=== PATIENT | female | born 2000 | race Hispanic/Latino ===

== ENCOUNTER 2022-12-16 09:14 | Emergency (ER) | payer SELFPAY ==
[2022-12-16 09:16] VITALS: BP 127/62; PULSE 102; RESP 18; TEMP 36.6; O2SAT 100
--- NOTE | 2022-12-16 09:54 | EX.ED.DYSGE1 ---
HPI History of Present Illness Chief Complaint: Back Detail of Chief Complaint: Back and abdomen pain Informant: patient Narrative Narrative: Patient presents the emergency department with complaint of back pain that radiates to the lower abdomen. Patient does not speak Sammarinese well therefore we used the iPad interpreter for the deaf. Pain has been for 2 days. She did have a fall several days ago where she fell in the home after slipping but fell forward. Patient denies any pain rating down her legs. She denies loss of bowel or bladder function. She denies dysuria. She denies fever. Rates her pain a 10 out of 10. She has no history of kidney stones. Never had pain like this before. Last menstrual period was 1 month ago. Patient does not think she is . Patient is G1, P1 with her last delivery being in [place]. PFSH PFSH Medical History no medical history Home Medications hydrocodone-acetaminophen 5-325mg 5mg-325mg 1 tab PO Q4H PRN PRN Pain 2 days #10 TABLETS 12/16/22 [Rx Last Taken Unknown] Allergy/AdvReac Type Severity Reaction Status Date / Time No Known Allergies Allergy Verified 12/16/22 09:18 Surgical History no surgical history Social History Smoking Status: Unknown if ever smoked ROS ROS ED Review of Systems ROS Unobtainable: other Constitutional Constitutional ED: Reports lethargy; Denies chills, fever(s), sweats or weight loss Eyes Eyes: Denies blurry vision, change in vision or diplopia ENT ENT ED: Denies rhinorrhea or sore throat Cardiovascular Cardiovascular: Denies chest pain, orthopnea or racing heartbeat Respiratory/Chest Respiratory/Chest: Denies cough, dyspnea, dyspnea on exertion, orthopnea or sputum Gastrointestinal Gastrointestinal: Reports abdominal pain; Denies diarrhea, nausea or vomiting Genitourinary Genitourinary ED: Denies dysuria, hematuria or urinary frequency Musculoskeletal Musculoskeletal: Reports back pain; Denies arthralgias, myalgias or neck pain Integumentary Denies abscess, Abrasions or rash Neurologic Neurologic: Denies headache(s) or weakness Psychiatric Psychiatric: Denies anxiety, depression or suicidal thoughts Endocrine Endocrinology: Denies polydipsia, polyphagia or polyuria Hematologic/Lymphatic Hematologic/Lymphatic: Denies easy bleeding, easy bruising or lymphadenopathy Allergic/Immunologic Allergic/Immunologic ED: Denies mouth swelling, tongue swelling or urticaria EXAM Physical Exam Const Vital Signs: 12/16/22 09:16 12/16/22 14:15 12/16/22 15:29 Temperature 97.9 F Temperature Source Temporal Pulse Rate 102 H 62 Respiratory Rate 18 16 12 Blood Pressure 127/62 H 116/75 Blood Pressure Mean 83 88 Pulse Ox 100 99 Oxygen Delivery Method Room Air Positive well nourished and well developed General Appearance ED: well developed and NAD HEENT Reports TM's clear and moist mucous membranes normocephalic and atraumatic; Negative for trauma or tenderness Tympanic Membrane ED: Yes TM's clear Eyes PERRL and EOMs intact bilaterally General Eye ED: Negative for pale conjunctiva or scleral icterus Neck no lymphadenopathy, supple and no JVD General: Negative for tenderness Chest Wall inspection of chest normal and palpation of chest normal Chest: Negative for tenderness Resp normal respiratory effort and clear to auscultation bilaterally Effort and Inspection: Negative for respiratory distress or pain with movement Auscultation: Negative for rhonchi, wheezes or diminished lung sounds Cardio regular rate, regular rhythm, S1 normal heart sound, S2 normal heart sound and no murmurs Peripheral Pulses: pulses 2+ throughout GI normal to inspection, nondistended, normoactive bowel sounds, soft to palpation, non-distended and no masses GI Narrative: Tenderness palpation over left lower quadrant with some guarding. There is no rebound, rigidity, or pedal signs. Back/Spine no CVA tenderness and no thoracic nor lumbar tenderness Extremity normal to inspection General Extremety ED: Negative for edema General Extremity: Negative for edema Neuro oriented x3, CN's II-XII intact bilaterally, no sensory deficits noted and gait normal Sensorium / Orientation: awake, alert, oriented to person, oriented to place and oriented to time Motor Exam: strength 5/5 throughout and strength abnormal Psych mental status grossly normal Skin no rashes or lesions noted and no wounds MDM MDM MDM Narrative Medical decision making narrative: Patient presents with back pain and lower abdomen pain. Patient history coming through interpreter for the deaf via iPad. There is some history of a fall 2 or 3 days ago but she states that she actually fell forward did not fall onto her back or onto her bottom. Pain in her low back seems to radiate to the left lower abdomen. In the differential would be urinary tract infection versus kidney stone versus or ectopic. Patient tells me her last menstrual period was a week ago. IV line established. Initial blood work showed a white count of 8.3 with hemoglobin 10.7 and platelet count of 419. Chemistries unremarkable. Urinalysis negative for infection and patient's came back positive. Initially had ordered a CT scan of the abdomen pelvis to rule out kidney stone however this was canceled. A quantitative hCG obtained was 51,373. I did obtain pelvic ultrasound which showed a live intrauterine measuring 7 weeks with small subchorionic hemorrhage. There was no blood in the urine. I feel kidney stone less likely. Suspect pain may be related to and there is no evidence of ectopic. I do not feel x-rays of her back are indicated given that she is and has not had significant trauma. There is no radiculopathy type symptoms. Discussed case with [facility] on-call and they would be happy to see patient in follow-up. OB recommended that we advised the patient that they do have Cymro speaking staff that she can follow-up with. Had a long discussion with patient through interpreter for the deaf again once her work-up was obtained. She continues to complain of significant pain in the mid lower back. Discussed risk of radiation versus obtaining x-rays and she would like to proceed with obtaining x-rays of her lumbar spine. Patient also would like some [place] for pain for a few days. Lab Data Attestation: I reviewed the patient's lab results. Labs: Laboratory Results - last 24 hr 12/16/22 12/16/22 12/16/22 10:17 10:22 10:55 WBC 8.3 RBC 3.88 L Hgb 10.7 L Hct 33.7 L MCV 86.9 MCH 27.6 MCHC 31.8 L RDW Std Deviation 41.8 RDW Coeff of Rula 13.5 Plt Count 419 MPV 9.2 Immature Gran % (Auto) 0.500 Neut % (Auto) 64.9 Lymph % (Auto) 27.1 [place] % (Auto) 6.5 Eos % (Auto) 0.8 Baso % (Auto) 0.2 Absolute Neuts (auto) 5.4 Absolute Lymphs (auto) 2.24 Nucleated RBC % 0 Sodium 137 Potassium 3.3 L Chloride 108 H Carbon Dioxide 24.0 Anion Gap 5 BUN 10 Creatinine 0.83 Est GFR (MDRD) Af Amer 112 Est GFR (MDRD) Non-Af 93 BUN/Creatinine Ratio 12.1 Glucose 113 H Calcium 9.2 HCG, Quant 88424 H Serum , Qual POSITIVE H Urine Color Yellow Urine Clarity Sl. Cloudy Urine pH 6.5 Ur Specific [place] 1.010 Urine Protein 15 H Urine Glucose (UA) Normal Urine Ketones Negative Urine Occult Blood Negative Urine Nitrite Negative Urine Bilirubin Negative Urine Urobilinogen Normal Ur Leukocyte Esterase 500 H Urine RBC 0 SEEN Urine WBC 0-5 SEEN Ur Squamous Epith Cells 0-5 SEEN Urine Bacteria 1+ Urine Mucus 0 SEEN Blood Type O POSITIVE A1 Antigen Typing Cancelled Rho(D) Type Cancelled Radiography Diagnostic Testing: Clinical Impression(s) from Imaging Studies Obstetrics Ultrasound 12/16/22 10:42 IMPRESSION: Single live intrauterine gestation with mean gestational age of 7 weeks. Small subchorionic bleed. Electronically Signed: Bola Gill MD at 12:49 EDT , Lumbar Spine X-Ray 12/16/22 14:55 IMPRESSION: Minimal dextroscoliosis of the lumbar spine. Electronically Signed: Bola Gill MD at 15:11 EDT , 2 view x-rays of lumbar spine obtained interpreted by myself as no evidence of fracture or dislocation. Radiology in agreement. Discharge Plan Triage Chief Complaint: Back ED Provider: Camelia Falk Dx/Rx/DC Orders Clinical Impression: Back pain, Instructions: ED Back and Neck Pain, General, ED , New Dx Prescriptions: New hydrocodone-acetaminophen [hydrocodone-acetaminophen] 5-325 mg tablet 1 tab PO Q4H PRN PRN (Reason: Pain) 2 Days Qty: 10 0RF Primary Care Provider: Care Physician,No Primary Referrals: Brad Arcos MD [Med Staff - Active Staff] - 3-5 Days Care Physician,No Primary [Primary Care Provider] - Activity Restrictions/Additional Instructions: When calling the office ask for Cymro-speaking providers. Print Language: Cymro Disposition Disposition: Home, Self Care Discharge Date/Time: 12/16/22 15:31
[2022-12-16] MEDS: 0.9% Normal Saline (1000mL) 1,000 ML 125 ML IV (10:14)
[2022-12-16] MEDS: Morphine 4 MG/ML Syringe IV (10:15)
[2022-12-16] MEDS: Ondansetron 4 MG/2 ML Vial IV (10:15)
[2022-12-16] MEDS: Ketorolac 30 MG/ML Syringe IV (10:15)
[2022-12-16 10:26] LABS: Mucous, Urine 0 SEEN /hpf (<or=2+); Red Blood Cells-Urine 0 SEEN /hpf (0-5)
[2022-12-16 10:27] LABS: Absolute Lymphocyte Count 2.24 X10^3/uL (0.83-4.51); Absolute Neutrophil Count 5.4 X10^3/uL (2.0-7.7); Basophil# 0.02 X10^3/uL; Basophil% 0.2 % (0-1); Eosinophil# 0.07 X10^3/uL; Eosinophils% 0.8 % (0-5); Hematocrit 33.7 % (37-47); Hemoglobin 10.7 g/dL (12.0-15.0); Lymphocyte # 2.24 X10^3/ul (0.83-4.51); Lymphocyte % 27.1 % (19-41); Mean Corp Hgb Conc 31.8 g/dL (32-36); Mean Corpuscular Hgb 27.6 pg (27.0-32.0); Mean Corpuscular Volume 86.9 fL (81-99); Mean Platelet Vol. 9.2 fl (6.2-12.0); Monocyte# 0.54 X10^3/uL; Monocyte% 6.5 % (0-10); NRBC Flagged by Analyzer 0 % (0-5); Neutrophil # 5.36 X10^3/uL (2.7-7.7); Neutrophil % 64.9 % (47-70); Platelet Count 419 K/mm3 (150-450); RBC Distribution Width CV 13.5 % (11.6-14.6); RBC Distribution Width SD 41.8 fl (35.1-43.9); Red Blood Count 3.88 M/mm3 (4.2-5.4); White Blood Count 8.3 K/mm3 (4.4-11.0)
[2022-12-16 10:28] LABS: Color, Urine Yellow (Yellow); Glucose, Dipstick Normal (Normal); Ketone-Dipstick Negative (Negative); Leukocyte Esterase-Dipstick 500 /ul (Negative); Nitrite-Dipstick Negative (Negative); Occult Blood-Urine Negative /ul (Negative); Protein-Dipstick 15 mg/dl (Negative); Urine Bilirubin Dipstick Negative (Negative); Urine Clarity Sl. Cloudy (Clear); Urine Urobilinogen Normal (Normal); Urine pH 6.5 (5.0 - 8.0)
[2022-12-16 10:40] LABS: Internal QC Validated? YES +Cl - CLEAR BKGD
--- NOTE | 2022-12-16 10:42 | US_ITS ---
STUDY: FIRST TRIMESTER OBSTETRICAL ULTRASOUND REASON FOR EXAM: Female, 22 years old . Pelvic pain. LMP: Unknown. TECHNIQUE: Transvaginal TECHNICAL QUALITY: Adequate. PRIOR ULTRASOUND: None. FINDINGS: There is visualization of a single gestational sac in a normal intrauterine position. The mean sac diameter (MSD) measures 2.2 cm, indicating an estimated gestational age (EGA) of 7 weeks, 1 days. The gestational sac shape is within normal limits. There is a visualized yolk sac. The yolk sac measures 3.8 mm. The placenta is non-visualized. There is visualization of a live embryo. The crown-rump length (CRL) measures 9.1 mm, indicating an estimated gestational age (EGA) of 7 weeks, 0 days. There is demonstrated cardiac activity with a heart rate of 132 bpm. The estimated gestation age (EGA) by US is 7 weeks, 0 days. The estimated date of delivery (FLASH) by US is August 03, 2023. The uterus measures 11.8 cm x 7.9 cm x 6.4 cm. There is no demonstrated uterine fibroid. The cervix is closed. Is evidence of an 8 mm x 8 mm x 19 mm subcutaneous chorionic bleed. The right ovary measures 3 cm x 2.2 cm x 2 cm. There is a corpus luteum cyst measuring 2.2 cm x 1.6 x 1.6 cm. There is no visualized right adnexal mass or complex lesion. The left ovary measures 2 cm x 2 cm x 1 cm. There is no left ovarian cyst. There is no visualized left adnexal mass or complex lesion. There is no fluid in the cul de sac. US/Transvaginal w/Preg US IMPRESSION: Single live intrauterine gestation with mean gestational age of 7 weeks. Small subchorionic bleed. Electronically Signed: Bola Gill MD at 12:49 EDT ,
[2022-12-16 10:44] LABS: Anion Gap 5 (5-15); BUN 10 mg/dL (7-18); BUN/Creat Ratio 12.1 RATIO (10-20); Calcium,Total 9.2 mg/dL (8.5-10.1); Chloride 108 mmol/L (98-107); Creatinine, Serum 0.83 mg/dL (0.55-1.02); EST Glomerular Filtration Rate 93 mL/min (>60); Est Glom Filt Rate - Afr Amer 112 mL/min (>60); Glucose 113 mg/dL (74-106); Potassium 3.3 mmol/L (3.5-5.1); Pregnancy, Serum, hCG Quali. POSITIVE Negative; Sodium Level 137 mmol/L (136-145)
[2022-12-16 10:47] LABS: Bacteria 1+ /hpf (None Seen); Squamous Epithelial Cells - UA 0-5 SEEN /hpf (5-10); White Blood Cells 0-5 SEEN /hpf (0-5)
[2022-12-16 12:20] LABS: hCG Titer Quant., Serum 51373 mIU/mL (1-3)
[2022-12-16 14:15] VITALS: RESP 16
--- NOTE | 2022-12-16 14:55 | RAD_ITS ---
STUDY: X-RAY - LUMBAR SPINE REASON FOR EXAM: Female, 22 years old. Back pain. Patient is . Appropriate shielding was provided. TECHNIQUE: view(s) of the lumbar spine were obtained. COMPARISON: None FINDINGS: Normal lumbar lordosis. There is a minimal dextroscoliosis of the lumbar spine. There is a normal alignment of the vertebrae. Normal vertebral bodies and endplates. Normal disc space heights. The soft tissue structures are unremarkable. RAD/Lumbar Spine 2 or 3 Views IMPRESSION: Minimal dextroscoliosis of the lumbar spine. Electronically Signed: Bola Gill MD at 15:11 EDT ,
[2022-12-16 15:29] VITALS: BP 116/75; PULSE 62; RESP 12; O2SAT 99
== END 2022-12-16 15:31 | disposition home or self-care (01) ==
PROVIDERS: Emergency Provider Emergency Medicine; Visit Provider Emergency Medicine
DX: O99.891 Other specified diseases and conditions complicating pregnancy (principal); M54.9 Dorsalgia, unspecified; Z3A.01 Less than 8 weeks gestation of pregnancy; O20.8 Other hemorrhage in early pregnancy; W01.0XXA Fall on same level from slipping, tripping and stumbling without subsequent striking against object, initial encounter
CPT/HCPCS: 72100; 76817; 80048; 81001; 84702; 84703; 85025; 86900; 86901; 87086; 96361; 96374; 96375; 99283; J7030; J2405